=== PATIENT | female | born 1995 | race Caucasian/White ===

== ENCOUNTER 2017-12-21 20:59 | Emergency (ER) | payer MEDICAID, OTHER ==
[2017-12-22 00:47] LABS: URINE BLOOD (Dip) POC Negative (NEGATIVE); URINE GLUCOSE (Dip) POC Negative (NEGATIVE); URINE KETONES (Dip) POC Negative (NEGATIVE); URINE LEUKOCYTE EST (Dip) POC Trace (NEGATIVE); URINE NITRITE (Dip) POC Negative (NEGATIVE); URINE TOTAL PROTEIN POC Negative (NEGATIVE)
[2017-12-22] MEDS: ACETAMINOPHEN 325 MG TAB PO (00:50)
[2017-12-22] MEDS: AMOXICILLIN/CLAV 875 MG TAB PO (00:52)
== END 2017-12-22 03:21 | disposition home or self-care (01) ==
LOC: FTE 20:59
DX: O99.89 Other specified diseases and conditions complicating pregnancy, childbirth and the puerperium (principal); H66.001 Acute suppurative otitis media without spontaneous rupture of ear drum, right ear; Z3A.19 19 weeks gestation of pregnancy
CPT/HCPCS: 81003; 81025; 99283

== ENCOUNTER 2018-05-02 17:28 | Inpatient (IN) | payer MEDICAID ==
[2018-05-02] MEDS: LACTATED RINGER'S 1,000 ML IV ×2 (20:11→20:50)
[2018-05-02 20:43] LABS: ADD UMIC YES; UR AMORPHOUS CRYSTAL FEW /HPF (NONE SEEN); UR ASCORBIC ACID NEGATIVE (NEGATIVE); UR BACTERIA FEW /HPF (NONE SEEN); UR BILIRUBIN (Dip) NEGATIVE (NEGATIVE); UR BLOOD (Dip) 1+ mg/dL (NEGATIVE); UR CLARITY SLIGHTLY CLOUDY (CLEAR); UR COLOR YELLOW (YELLOW); UR GLUCOSE (Dip) NEGATIVE (NEGATIVE); UR KETONES (Dip) NEGATIVE (NEGATIVE); UR LEUKOCYTE ESTERASE (Dip) 1+ Leu/ul (NEGATIVE); UR NITRITE (Dip) NEGATIVE (NEGATIVE); UR RBC 1 /HPF (0-5); UR SPECIFIC GRAVITY (Dip) 1.016 (1.003-1.030); UR SQUAMOUS EPITHELIAL CELL MODERATE /HPF (FEW); UR TOTAL PROTEIN (Dip) NEGATIVE (NEGATIVE); UR UROBILINOGEN (Dip) NEGATIVE (NEGATIVE); UR WBC 3 /HPF (0-5)
[2018-05-02] MEDS ORDERED: OXYTOCIN 30 UNITS/LR 500 ML IV (22:00)
[2018-05-02] MEDS ORDERED: CARBOPROST 250 MCG INJ IM (22:00)
[2018-05-02] MEDS ORDERED: METHYLERGONOVINE 0.2 MG INJ IM (22:00)
[2018-05-02] MEDS ORDERED: MISOPROSTOL 200 MCG TAB PR (22:00)
[2018-05-02] MEDS ORDERED: CEFAZOLIN 2 GM/50 ML (PMX) 50 ML IVPB (22:00)
[2018-05-02 23:17] LABS: ADD MAN DIFF? NO
[2018-05-02 23:20] LABS: WHITE BLOOD COUNT 12.9 10^3/ul (4.8-10.8)
[2018-05-02 23:20] LABS: BASOPHILS % 0.2 % (0.0-2.0); EOSINOPHILS # 0.1 10^3/ul (0.0-0.5); EOSINOPHILS % 0.7 % (0.0-7.0); LYMPHOCYTES # 2.5 10^3/ul (0.8-2.9); LYMPHOCYTES % 19.7 % (15.0-51.0); MEAN CORPUSCULAR HEMOGLOBIN 30.2 pg (29.0-33.0); MEAN CORPUSCULAR HGB CONC 33.3 g/dl (32.0-37.0); MEAN CORPUSCULAR VOLUME 90.5 fl (82.0-101.0); MEAN PLATELET VOLUME 11.7 fl (7.4-10.4); MONOCYTE # 1.2 10^3/ul (0.3-0.9); MONOCYTES % 8.9 % (0.0-11.0); NEUTROPHIL # 8.8 10^3/ul (1.6-7.5); NEUTROPHILS % 68.2 % (39.0-77.0); PLATELET COUNT 228 10^3/UL (140-415); RED BLOOD COUNT 3.98 10^6/ul (4.20-5.40); RED CELL DISTRIBUTION WIDTH 12.8 % (11.5-14.5)
[2018-05-02 23:39] LABS: INR 0.89; PROTIME 12.1 Sec (11.9-14.9); PT RATIO 0.9
[2018-05-02 23:40] LABS: PARTIAL THROMBOPLASTIN TIME 28.1 Sec (23.0-35.0)
[2018-05-03] MEDS: LACTATED RINGER'S 1,000 ML IV ×4 (02:05→21:07)
[2018-05-03] MEDS: TERBUTALINE 1 MG/ML INJ SC (04:19)
[2018-05-03] MEDS: FAMOTIDINE 20 MG INJ IV (11:37)
[2018-05-03] MEDS: ONDANSETRON 4 MG INJ IV (11:37)
[2018-05-03] MEDS: METOCLOPRAMIDE 10 MG INJ IV (11:37)
[2018-05-03] MEDS ORDERED: hydrALAzine 20 MG INJ IV (12:00)
[2018-05-03] MEDS ORDERED: FENTAnyl 50 MCG/ML VIAL IV ×2 (12:00)
[2018-05-03] MEDS ORDERED: HYDROmorphONE 1 MG/5 ML IV SYRINGE IV ×3 (12:00)
[2018-05-03] MEDS ORDERED: DIPHENHYDRAMINE 50 MG INJ IV ×2 (12:00)
[2018-05-03] MEDS ORDERED: NALOXONE (0.4 MG/ML) INJ IV ×2 (12:00→18:00)
[2018-05-03] MEDS ORDERED: ONDANSETRON 4 MG INJ IV ×3 (12:00→18:00)
[2018-05-03] MEDS ORDERED: HYDROmorphONE 0.5 MG/0.5 ML SYG IV ×4 (12:00→18:00)
[2018-05-03] MEDS ORDERED: OXYTOCIN 10 UNIT INJ (12:00)
[2018-05-03] MEDS ORDERED: ZOLPIDEM 5 MG TAB PO ×2 (12:00→18:00)
[2018-05-03] MEDS ORDERED: morphine SULFATE/PF (10 MG/10 ML) INJ (12:00)
[2018-05-03] MEDS ORDERED: LEVALBUTEROL (NEB) 1.25 MG/0.5 ML AMP HHN (12:00)
[2018-05-03] MEDS ORDERED: LABETALOL HCL 20MG INJ IV (12:00)
[2018-05-03] MEDS ORDERED: KETOROLAC 30 MG INJ IV ×2 (12:00)
[2018-05-03] MEDS ORDERED: EPINEPHrine 1 MG INJ (12:01)
[2018-05-03] MEDS ORDERED: PHENYLephrine (100 MCG/ML) 10ML SYG (13:14)
[2018-05-03] MEDS: AZITHROMYCIN 500MG/NS (PMX) 250 ML IVPB (15:05)
[2018-05-03] MEDS: OXYTOCIN 30 UNITS/LR 500 ML IV (15:25)
[2018-05-03 15:57] LABS: HEPATITIS B SURFACE ANTIGEN NEGATIVE (NEGATIVE)
[2018-05-03] MEDS: KETOROLAC 30 MG INJ IV (17:37)
[2018-05-03] MEDS ORDERED: METHYLERGONOVINE 0.2 MG INJ IM (18:00)
[2018-05-03] MEDS ORDERED: OXYTOCIN 30 UNITS/LR 500 ML IV (18:00)
[2018-05-03] MEDS ORDERED: NA PHOSPHATE/BIPHOS 133 ML ENEMA PR (18:00)
[2018-05-03] MEDS ORDERED: MISOPROSTOL 200 MCG TAB PR (18:00)
[2018-05-03] MEDS ORDERED: HYDROCODONE/APAP (5/325) TAB PO (18:00)
[2018-05-03] MEDS ORDERED: OXYCODONE/ACETAMINOPHEN (5/325) TAB PO (18:00)
[2018-05-03] MEDS ORDERED: CARBOPROST 250 MCG INJ IM (18:00)
[2018-05-03] MEDS: CLINDAMYCIN 300 MG CAP PO ×2 (18:53→23:55)
[2018-05-03] MEDS: CEFAZOLIN 2 GM/50 ML (PMX) 50 ML IVPB (19:00)
[2018-05-03] MEDS: SENNA/DOCUSATE NA (8.6MG/50MG) TAB PO (21:07)
[2018-05-03 23:21] LABS: RAPID PLASMA REAGIN NONREACTIVE (NR)
[2018-05-04] MEDS: CEFAZOLIN 2 GM/50 ML (PMX) 50 ML IVPB ×2 (01:30→09:22)
[2018-05-04] MEDS: CLINDAMYCIN 300 MG CAP PO ×3 (05:41→18:14)
[2018-05-04] MEDS: LACTATED RINGER'S 1,000 ML IV (06:16)
[2018-05-04] MEDS: LANOLIN HPA 1 PKT TOP (06:17)
[2018-05-04] MEDS: DIPHENHYDRAMINE 50 MG INJ IV (06:49)
[2018-05-04 07:36] LABS: ADD MAN DIFF? NO
[2018-05-04 07:47] LABS: WHITE BLOOD COUNT 12.4 10^3/ul (4.8-10.8)
[2018-05-04 07:47] LABS: BASOPHILS % 0.2 % (0.0-2.0); EOSINOPHILS % 0.2 % (0.0-7.0); HEMATOCRIT 29.6 % (37.0-47.0); HEMOGLOBIN 9.9 g/dl (12.0-16.0); LYMPHOCYTES # 1.7 10^3/ul (0.8-2.9); LYMPHOCYTES % 13.5 % (15.0-51.0); MEAN CORPUSCULAR HEMOGLOBIN 30.5 pg (29.0-33.0); MEAN CORPUSCULAR HGB CONC 33.4 g/dl (32.0-37.0); MEAN CORPUSCULAR VOLUME 91.1 fl (82.0-101.0); MEAN PLATELET VOLUME 11.5 fl (7.4-10.4); MONOCYTE # 1.2 10^3/ul (0.3-0.9); MONOCYTES % 9.8 % (0.0-11.0); NEUTROPHIL # 9.3 10^3/ul (1.6-7.5); PLATELET COUNT 184 10^3/UL (140-415); RED BLOOD COUNT 3.25 10^6/ul (4.20-5.40); RED CELL DISTRIBUTION WIDTH 12.9 % (11.5-14.5)
[2018-05-04] MEDS: SENNA/DOCUSATE NA (8.6MG/50MG) TAB PO ×2 (09:22→20:45)
[2018-05-04] MEDS: BISACODYL 10 MG SUPP PR (12:10)
[2018-05-04] MEDS: KETOROLAC 30 MG INJ IV (12:22)
[2018-05-04] MEDS: IBUPROFEN 800 MG TAB PO ×2 (13:42→21:37)
[2018-05-05] MEDS: CLINDAMYCIN 300 MG CAP PO ×5 (00:07→23:42)
[2018-05-05] MEDS: IBUPROFEN 800 MG TAB PO ×3 (05:52→22:27)
[2018-05-05] MEDS: SENNA/DOCUSATE NA (8.6MG/50MG) TAB PO ×2 (09:02→21:20)
[2018-05-05] MEDS: ACETAMINOPHEN 325 MG TAB PO ×2 (15:08→21:20)
[2018-05-06] MEDS: ACETAMINOPHEN 325 MG TAB PO ×4 (02:24→17:48)
[2018-05-06] MEDS: CLINDAMYCIN 300 MG CAP PO ×3 (05:33→17:47)
[2018-05-06] MEDS: IBUPROFEN 800 MG TAB PO ×2 (05:34→14:41)
[2018-05-06] MEDS: SENNA/DOCUSATE NA (8.6MG/50MG) TAB PO (08:49)
[2018-05-06] MEDS: DIPHTH/TET/ACEL PERTUSS (ADULT) 0.5 ML VIAL IM* (09:58)
[2018-05-06] MEDS: MEASLES,MUMPS,RUBELLA VACCINE INJ SC* (09:58)
== END 2018-05-06 18:35 | disposition home or self-care (01) | DRG 788 ==
LOC: OBT 17:28 → L-D 05-03 12:59 → OBT 21:25 → PP1 05-03 17:13 → L-D 21:25
PROC: 10D00Z1 Extraction of Products of Conception, Low, Open Approach (ICD-10-PCS; principal; 2018-05-03 12:30)
DX: O34.219 Maternal care for unspecified type scar from previous cesarean delivery (principal); Z3A.38 38 weeks gestation of pregnancy; Z37.0 Single live birth
CPT/HCPCS: 36415; 81001; 85025; 85610; 85730; 86592; 86850; 86900; 86901; 87086; 87340; 87591; 96360; 99464